=== PATIENT | male | born 2000 | race Caucasian/White ===

== ENCOUNTER 2020-04-06 07:28 | Emergency (ER) | payer OTHER ==
[~2020-04-06] VITALS: Ht 167.6 cm; Wt 81.6 kg
[2020-04-06 07:28] VITALS: BP_SYST 115
--- NOTE | 2020-04-06 07:28 | NUR ---
BROUGHT BACK TO BED #6 AND TRIAGED, REPORT GIVEN TO GORDY. PT HERE FOR OK TO BOOK AND BLOOD ALCOHOL
--- NOTE | 2020-04-06 07:39 | NUR ---
Pt brought in with law enforcement for ok to book, pt asleep in [facility] at this time, no distress noted, VSS, awaiting law enforcement to bring new blood draw vial.
--- NOTE | 2020-04-06 07:45 | NUR ---
ER at bedside examining patient.
[2020-04-06 08:39] VITALS: BP_SYST 115
--- NOTE | 2020-04-06 08:40 | NUR ---
Patient given written and verbal discharge instructions and verbalizes understanding. ER MD discussed with patient the results and treatment provided. Patient in stable condition. ID arm band removed. Patient educated on pain management and to follow up with PMD. Pain Scale 0/10. Opportunity for questions provided and answered. Medication side effect fact sheet provided.
== END 2020-04-06 08:40 ==
LOC: SED 07:28
DX: Z04.3 Encounter for examination and observation following other accident (principal); V49.49XA Driver injured in collision with other motor vehicles in traffic accident, initial encounter; Y93.89 Activity, other specified; Y92.413 State road as the place of occurrence of the external cause; Y99.8 Other external cause status
CPT/HCPCS: 99283